=== PATIENT | male | born 1995 | race Caucasian/White ===

== ENCOUNTER 2017-01-29 11:14 | Emergency (ER) | payer MEDICAID ==
[~2017-01-29] VITALS: Ht 157.5 cm; Wt 65.0 kg
[2017-01-29 11:19] VITALS: Ht 157.5 cm; Wt 65.0 kg
[2017-01-29] MEDS ORDERED: LIDOCAINE 1% (MDV) 20 ML INJ SC ONE (13:30)
[2017-01-29] MEDS ORDERED: DIPHTH/TET/ACEL PERTUSS (ADULT) 0.5 ML VIAL IM* ONE (13:30)
[2017-01-29] MEDS ORDERED: HYDROCODONE/APAP (5/325) TAB PO ONE (13:30)
[2017-01-29] MEDS ORDERED: ACET500C5 PO (14:36)
[2017-01-29] MEDS ORDERED: CEPH-443 PO (14:36)
[2017-01-29] MEDS ORDERED: IBUP-1542 PO (14:36)
--- NOTE | 2017-01-29 14:43 | ERD ---
ER Documentation Chief Complaint Date/Time DATE: 01/29/17 TIME: 14:39 Chief Complaint LEFT HAND LAC HPI This is a 21-year-old male who presents the emergency department today complaining of a left hand laceration he sustained earlier this morning while working out in the garden. Patient states he cut it with a knife. Denies any previous trauma. He has not taken medication for the pain. Denies any fevers or chills. ROS All systems reviewed and are negative except as per history of present illness. Medications Home Meds Active Scripts Acetaminophen* (Tylophen*) 500 Mg Capsule, 1 CAP PO Q6H Y for PAIN AND OR ELEVATED TEMP, #30 CAP Prov:JENN FRANCO PA-C 01/29/17 Ibuprofen* (Motrin*) 600 Mg Tab, 600 MG PO Q6, #30 TAB Prov:JENN FRANCO PA-C 01/29/17 Cephalexin* (Keflex*) 500 Mg Capsule, 500 MG PO QID for 7 Days, CAP Prov:JENN FRANCOC 01/29/17 Allergies Allergies: Coded Allergies: No Known Allergy (Unverified , 01/29/17) PMhx/Soc Medical and Surgical Hx: pt denies Medical Hx, pt denies Surgical Hx Hx Alcohol Use: No Hx Substance Use: No Hx Tobacco Use: No Smoking Status: Never smoker Physical Exam Vitals Vital Signs Date Time Temp Pulse Resp B/P Pulse Ox O2 Delivery O2 Flow Rate FiO2 01/29/17 11:19 98.7 88 18 142/82 98 Physical Exam Const: No acute distress Head: Atraumatic Eyes: Normal Conjunctiva ENT: Normal External Ears, Nose and Mouth. Neck: Full range of motion..~ No meningismus. Resp: Clear to auscultation bilaterally Cardio: Regular rate and rhythm, no murmurs Skin: 5 cm straight laceration dorsal aspect of hand. MSK: Left hand with no obvious deformity. No effusion. No ecchymosis. Evidence of 5 cm laceration dorsal aspect of hand. Pulses 2+. Distal neurovascularly intact. Good cap refill. Neur: Awake and alert Psych: Normal Mood and Affect Results 24 hrs Current Medications Medications (Trade) Dose Ordered Sig/Trena Route PRN Reason Start Time Stop Time Status Last Admin Dose Admin Acetaminophen/ Hydrocodone Bitart (Mcneal (5/325)) 1 tab ONCE ONCE PO 01/29/17 13:30 01/29/17 13:31 DC 01/29/17 13:21 Lidocaine (Xylocaine 1% (Mdv) 20 ml) 20 ml ONCE ONCE SC 01/29/17 13:30 01/29/17 13:31 DC Diphtheria/ Tetanus/Acell Pertussis (Adacel) 0.5 ml ONCE ONCE IM* 01/29/17 13:30 01/29/17 13:31 DC 01/29/17 13:49 Procedures/MDM This 21-year-old male who presents to the emergency department today for a left hand laceration he sustained earlier today. Physical exam patient had a proximal 5 cm straight laceration on the dorsal aspect of his hand. He is distally neurovascularly intact and wound appears to be more superficial and I do not feel the patient requires imaging at this time. There is no evidence of foreign body. Patient tolerated the procedure well and there were no complications. Laceration repair was completed by Kendal LOOMIS under my direct supervision. Low suspicion for deep space infection, sepsis. Patient is afebrile and otherwise well-appearing. Laceration Repair by me: Anesthesia: 1% lidocaine locally 6 cc Location: Locally dorsal aspect of left hand Tendon/Joint/Nerves: No injury Foreign body: None detected after copious irrigation and exploration Technique: 8 Simple Interrupted Sutures of 4. 0 nylon Complexity: No subcutaneous sutures/mucosal repair/ edge excision Post Closure Length: 5 cm Patient's bleeding was easily controlled in the department and there is no indication of anemia. No evidence of compartment syndrome, neurologic injury, vascular injury, open joint, tendon laceration, or foreign body. Patient is appropriate for outpatient follow up. 48 hour wound check. Scar minimization instructions given. Patient was given a tetanus shot here in the emergency department as he was not up-to-date. He was also given Mcneal here in the emergency department. Also given a prescription for Keflex for home. He was also given a prescription for Tylenol and Motrin as well. He is instructed to return in 48 hours for wound check and again in 7-10 days for suture removal. 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 Patient understood. At this time the patient is stable for discharge and outpatient management. Patient should follow up with their PCP in the next 1-2 days. They may return to the emergency department sooner for any persistent or worsening of symptoms. Patient understood and agreed with the plan. Departure Diagnosis: Primary Impression: Laceration Condition: Fair Patient Instructions: Laceration, Hand Referrals: [facility] () Usted se merritt hecho un examen mdico de control que le indica que no est en michael condicin que requiera tratamiento urgente en el Departamento de Emergencia. Un estudio ms profundo y el tratamiento de ballard condicin pueden esperar sin ningn riesgo hasta que usted sea atendida/o en el consultorio de ballard mdico o michael cl t[place]. Es responsabilidad suya arreglar michael zach para el seguimiento del [place]. MANEJO DE CONDICIONES NO URGENTES EN EL FUTURO 1) Si usted tiene un mdico de atencin primaria: Usted debera llamar a ballard mdico de atencin primaria antes de venir al departamento de emergencia. Despus de las horas de consultorio, ballard doctor o ballard asociado/a est disponible por telfono. El mdico o enfermero de cassy en el servicio telefnico puede asesorarle por fausto medio para atender el problema, o [place] contrario se puede programar michael zach. 2) Si usted no tiene un mdico de atencin primaria: Llame al mdico o condado institucions de referencia que aparece abajo merly las horas de consultorio para hacer michael zach para que le vean. SI USTED NO PUEDE PAGAR PARA PARMJIT UN MEDICO puede ir a: [facility] [address] [place] [address] [facility] [address] [place] [address] [facility] [address] [place] [address] [facility] [address] [place] [address] Additional Instructions: Llame al doctor MAANA y ashley michael ZACH PARA DENTRO DE 1-2 OVALLE.Dgale a la secretaria que nosotros le instruimos hacer esta zach.Avise o llame si ballard condicin se empeora antes de la zach. Regresa aqui si peor o no mejor. Wound check in 48 hours Suture removal in 7-10 days Take antibiotics as prescribed Keep wound clean and dry Take Tylenol or Motrin if you have any pain JENN FRANCO PA-C Jan 29, 2017 14:43
== END 2017-01-29 16:38 | disposition home or self-care (01) ==
LOC: FTE 11:14
DX: S61.412A Laceration without foreign body of left hand, initial encounter (principal); W26.0XXA Contact with knife, initial encounter; Y92.9 Unspecified place or not applicable; Z23 Encounter for immunization
CPT/HCPCS: 12002; 90715; Z7610; 90471

== ENCOUNTER 2019-02-02 12:32 | Emergency (ER) | payer SELFPAY ==
[~2019-02-02] VITALS: Wt 61.8 kg
[~2019-02-02 12:32] MED LIST: ACET500C5 PO; CEPH-443 PO; IBUP-1542 PO
[2019-02-02 13:01] VITALS: BP 139/95; PULSE 115; RESP 20
== END 2019-02-02 13:46 | disposition left against medical advice (07) ==
LOC: FTE 12:32
DX: Z53.21 Procedure and treatment not carried out due to patient leaving prior to being seen by health care provider (principal)